=== PATIENT | female | born 1955 | race Caucasian/White ===

== ENCOUNTER 2023-03-21 08:06 | Outpatient (CLI) | payer MEDICARE, BC, SELFPAY ==
[2023-03-21] VITALS (8 sets, daily range): BP systolic 106–121; BP diastolic 55–72; PULSE 92–98; RESP 16–18; TEMP 36.8–37.4; O2SAT 93–97
--- NOTE | 2023-03-21 14:53 | PC.NURSE ---
Pt is refereed here via outpatient to receive PRBC due to low hemoglobin of 6.9. infusion. 1 PRBC was infused, she is currently receiving the 2nd unit of PRBC. No reactions reported or noticed with her VS. PO benedryl and tylenol to be given per Dr Warner's order. Hemoglobin to be repeated after 2nd transfusion is complete.
[2023-03-21] MEDS: ACETAMINOPHEN 325 MG TABLET 650 MG PO (18:21)
[2023-03-21] MEDS: diphenhydrAMINE 25 MG CAPSULE 50 MG PO (18:23)
[2023-03-21 18:27] LABS: Hemoglobin* 8.1 gm/dL (12.0-16.0)
--- NOTE | 2023-03-21 18:49 | PC.NURSE ---
Second unit of PRBC infused without difficulty. VS have remained WNL, LS COA. Temps mildly elevated, as high as 99.4 but pt has denied chills. IV dc'd and pt discharged to home in the care of her via wheelchair at 1830. Pt signed transfusion discharge instructions and verbalized understanding.
== END 2023-03-21 18:56 | disposition home or self-care (01) ==
LOC: MS OUT 08:07 → MEDSURG 04-04 15:42
PROVIDERS: PCP Family Medicine; Visit Provider Family Medicine
DX: D64.9 Anemia, unspecified (principal)
CPT/HCPCS: 36415; 36430; 85018; 86850; 86900; 86901; 86922; A4221; A9270; P9016

== ENCOUNTER 2023-05-15 08:05 | Outpatient (CLI) | payer MEDICARE, BC, SELFPAY ==
--- NOTE | 2023-05-15 08:15 | CRLHL7_ITS ---
For Patients: As a result of the Century Cures Act, medical imaging exams and procedure reports are released immediately into your electronic medical record. You may view this report before your referring provider. If you have questions, please contact your health care provider. INDICATION: Sarcoma, liver lesions COMPARISON: none TECHNIQUE: Real time deluca scale imaging and color Doppler analysis was performed of the right upper quadrant. FINDINGS: There is a solid heterogeneously hypoechoic/isoechoic mass within the liver measuring 5.8 x 4.3 x 4.4 cm. An additional heterogeneous solid hypoechoic/hyperechoic mass is present within the right hepatic lobe measuring 7.3 x 5.5 x 6.4 cm. The liver is enlarged measuring 21.5 cm. A small hypoechoic mass arises from the left hepatic lobe measuring 2.1 x 1.2 x 2.2 cm. The liver parenchyma is diffusely coarsened. No ascites. The pancreas is not well visualized due to overlying bowel gas. The proximal aorta is normal measuring 1.8 cm. The grayscale images of the IVC appear normal. Layering material within the gallbladder lumen noted. The common bile duct measures 3.7 millimeters. Gallbladder wall measures 1.5 millimeters. [place] hyperechoic clot is present within the main portal vein with partial occlusion on Doppler waveform analysis. The right kidney appears normal without hydronephrosis and measures 11.6 cm. IMPRESSION: Three intrahepatic masses measuring up to 7.3 cm. No ascites. 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 Layering sludge in the gallbladder. No biliary obstruction. Dictated by Major Ambriz MD @ 05/15/2023 9:43:29 AM (Electronically Signed)
== END 2023-05-15 08:06 | disposition home or self-care (01) ==
PROVIDERS: PCP Family Medicine; Visit Provider Internal Medicine Hematology & Oncology
DX: C49.9 Malignant neoplasm of connective and soft tissue, unspecified (principal); K76.9 Liver disease, unspecified; R16.0 Hepatomegaly, not elsewhere classified; I81 Portal vein thrombosis
CPT/HCPCS: 76705

== ENCOUNTER 2023-07-09 09:31 | Outpatient (CLI) | payer MEDICARE, BC, SELFPAY ==
--- NOTE | 2023-07-09 10:00 | CRLHL7_ITS ---
For Patients: As a result of the Century Cures Act, medical imaging exams and procedure reports are released immediately into your electronic medical record. You may view this report before your referring provider. If you have questions, please contact your health care provider. Indication: Malignant neoplasm of connective and soft tissue Technique: CT Chest/Abd/Pelvis W/ISOVUE 370 [id number] Please note that all CT scans at this facility use dose modulation, iterative reconstruction, and/or weight-based dosing when appropriate to reduce radiation dose to as low as reasonably achievable. Comparison: 05/20/2023 Findings: In the chest, the visualized thyroid is normal. Atherosclerotic changes. Decreased trace pericardial effusion. No enlarged lymph nodes. No fracture. Stable tiny nodule within the left lower lobe. Chronic right-sided rib fracture deformities. In the abdomen, multiple intrahepatic masses are present, the largest is located within the inferior right hepatic lobe measuring up to 11.8 cm. This mass is more conspicuous compared to the prior study. Additional increased conspicuity of mass in the posterior segment right hepatic lobe measuring 3.6 cm. Other smaller lesions are present elsewhere with within the upper liver measuring 1.9 cm and 1.5 cm. Small cysts left kidney. Right kidney unremarkable. No hydronephrosis. Atherosclerotic changes. Numerous subcentimeter upper abdominal retroperitoneal lymph nodes. Postoperative changes to the stomach. The spleen is absent. No pancreatic lesion. Gallbladder normal. Inflammatory changes are present within the left para midline anterior abdomen with persistent extraluminal fluid/air. In the pelvis, bilateral hip replacement hardware noted creating significant artifact. The visualized bladder and deep pelvic soft tissues appear unremarkable without definitive adenopathy. No fracture. Degenerative facet arthropathy. Impression: Increased size, number and conspicuity of intrahepatic metastatic lesions consistent with progression of disease. Chronic inflammatory changes are present within the left anterior paramidline peritoneal cavity with chronic extraluminal fluid/gas. Right portal venous clot appears similar. No suspicious findings in the chest. Please note that all CT scans at this facility use dose modulation, iterative reconstruction, and/or weight-based dosing when appropriate to reduce radiation dose to as low as reasonably achievable. Dictated by Major Ambriz MD @ 07/10/2023 10:20:14 AM (Electronically Signed)
== END 2023-07-09 09:32 | disposition home or self-care (01) ==
LOC: CT 09:31
PROVIDERS: PCP Family Medicine; Visit Provider Internal Medicine Hematology & Oncology
DX: C49.9 Malignant neoplasm of connective and soft tissue, unspecified (principal)
CPT/HCPCS: 71260; 74177; Q9967

== ENCOUNTER 2023-07-10 10:32 | Emergency (ER) | payer MEDICARE, BC, SELFPAY ==
[2023-07-10] VITALS (32 sets, daily range): BP systolic 96–123; BP diastolic 43–82; PULSE 88–108; RESP 16–30; TEMP 36.9–38.2; O2SAT 90–100; BMI 28.7
--- NOTE | 2023-07-10 10:55 | ED.GENADULT ---
HPI - General Adult General Chief complaint: Abdominal Pain <Christie Miller MD - Last Filed: 07/12/23 10:53> Stated complaint: poss fever <Christie Miller MD - Last Filed: 07/12/23 10:53> Time Seen by Provider: 07/10/23 10:46 <Christie Miller MD - Last Filed: 07/12/23 10:53> Source: patient <Christie Miller MD - Last Filed: 07/12/23 10:53> Mode of arrival: ambulatory <Christie Miller MD - Last Filed: 07/12/23 10:53> Limitations: no limitations <Christie Miller MD - Last Filed: 07/12/23 10:53> History of Present Illness HPI narrative: 68-year-old female presenting with abdominal pain. Pain started 2 days ago. Pain is located in left lower quadrant does not radiate. Nothing seems to make it better or worse. Patient has not had a bowel movement in 3 days which is unusual for her. She denies any urinary symptoms such as increased frequency, urgency or dysuria. She denies any nausea or vomiting. Appetite has been normal. She states that she had temperature of 100.1? this morning. She denies chills. 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 She is getting palliative treatment. She also had a postoperative course complicated by abscess and infection. She is concerned that she may have another infection. Patient was seen yesterday for a chest, abdomen and pelvis CT scan as a follow-up. Results of the scan consistent with lesions which are now more conspicuous when compared to previous scans, liver metastasis. She also does have an area chronic inflammation of the left anterior paramidline peritoneal cavity. There was no evidence of acute infection or abscess formation on the scan yesterday. She does feel that her pain is slightly better today. <Christie Miller MD - Last Filed: 07/12/23 10:53> Related Data Home medications: Home Medications Medication Instructions Recorded Confirmed alendronate 70 mg tablet 70 mg PO .sunday03/27/23 07/10/23 omega 3-ifj-gmo-fish oil 1,000 mg 1 cap PO DAILY 03/27/23 07/10/23 (120 mg-180 mg) capsule (Fish Oil) potassium 99 mg tablet mg 03/27/23 06/06/23 sennosides 8.6 mg-docusate sodium 1 tab-cap PO DAILY 03/27/23 07/10/23 50 mg tablet (Senna with Docusate Sodium) cholecalciferol (vitamin D3) 25 5,000 unit PO DAILY 06/06/23 07/10/23 mcg (1,000 unit) capsule losartan 100 1 tab PO DAILY PRN 06/06/23 07/10/23 mg-hydrochlorothiazide 25 mg tablet naproxen 250 mg tablet 250 mg PO DAILY PRN 06/06/23 07/10/23 simvastatin 40 mg tablet 80 mg PO QPM 06/06/23 07/10/23 docusate sodium 100 mg capsule 200 mg PO DAILY 06/22/23 07/10/23 (Colace) ondansetron HCl 8 mg tablet 8 mg PO Q8-12H PRN 06/22/23 06/22/23 polyethylene glycol 3350 17 17 g PO DAILY 06/22/23 07/10/23 gram/dose oral powder (Miralax) <Christie Miller MD - Last Filed: 07/12/23 10:53> Allergies/adverse reactions: Allergies Allergy/AdvReac Type Severity Reaction Status Date / Time No Known Drug Allergies Allergy Verified 07/10/23 13:54 <Christie Miller MD - Last Filed: 07/12/23 10:53> Review of Systems Status of ROS: Reports: 10 or more systems reviewed and unremarkable except as noted in History and below <Christie Miller MD - Last Filed: 07/12/23 10:53> [facility] Social History: Social History Smoking Status: Current every day smoker What tobacco products do you use: cigarettes Smoking packs per day: 0.5 Smoking cigarettes per day: 10.0 How often do you have a drink containing alcohol: never How often do you have six or more drinks on one occasion: Never AUDIT-C Alcohol total score: 0 Non-prescribed substance use: denies use service: No <Christie Miller MD - Last Filed: 07/12/23 10:53> Exam Narrative: Exam Narrative: Well-nourished well-developed patient in no acute distress. Alert and oriented. Answers questions appropriately. Mood and affect are appropriate. Thoughts are goal oriented and rational. No tangential or magical thinking noted. Patient speaks in full sentences without needing to catch her breath. Patient does not appear ill or toxic. She is a bit tachycardic. HEENT: Normocephalic atraumatic. Pupils are equally round reactive to light. Extraocular muscles are intact. Conjunctivae are moist without any icterus noted. Moist mucous membranes. Posterior pharynx is normal. Neck is soft without any lymphadenopathy or thyromegaly. No masses are appreciated. Cardiovascular: Heart is regular rate and rhythm S1 and S2 are present without any murmurs. Lungs: Clear to auscultation bilaterally no wheezes rhonchi or rales are appreciated. Patient takes deep breaths without any discomfort. Abdomen: Soft, nontender and nondistended. She does have hypoactive bowel sounds. Anterior abdominal vertical scar healed appropriately. She has some firm masses over the left lower quadrant. Extremities: Bilateral lower extremities are without edema. Normal DP and PT pulses. Skin: Well perfused without any obvious rashes. <Christie Miller MD - Last Filed: 07/12/23 10:53> Const: Vital Signs, click to edit/add: Vital Signs - 24 hr 07/10/23 10:39 07/10/23 12:15 07/10/23 13:49 Temperature 98.5 F 100.7 F H 99.1 F Pulse Rate Pulse Rate [Right Pulse Oximeter] 108 H 101 H Respiratory Rate 18 30 H Blood Pressure Blood Pressure [Ri ght Forearm] 105/80 103/82 Pulse Oximetry 99 98 Oxygen Delivery Me thod Room Air Room Air 07/10/23 14:04 07/10/23 14:09 07/10/23 14:15 Temperature 100.4 F H Pulse Rate Pulse Rate [Right Pulse Oximeter] 95 Respiratory Rate 16 Blood Pressure Blood Pressure [Ri ght Forearm] 97/63 98/48 L Pulse Oximetry 92 94 Oxygen Delivery Me thod Room Air 07/10/23 14:21 07/10/23 14:29 07/10/23 14:30 Temperature 99.3 F Pulse Rate 94 92 Pulse Rate [Right Pulse Oximeter] Respiratory Rate Blood Pressure Blood Pressure [Ri ght Forearm] Pulse Oximetry 93 92 Oxygen Delivery Me thod 07/10/23 14:31 07/10/23 14:45 07/10/23 15:03 Temperature Pulse Rate 91 91 91 Pulse Rate [Right Pulse Oximeter] Respiratory Rate Blood Pressure 105/62 Blood Pressure [Ri ght Forearm] Pulse Oximetry 93 94 98 Oxygen Delivery Me thod 07/10/23 15:04 07/10/23 15:15 07/10/23 15:30 Temperature Pulse Rate 92 90 90 Pulse Rate [Right Pulse Oximeter] Respiratory Rate Blood Pressure 109/66 Blood Pressure [Ri ght Forearm] Pulse Oximetry 98 95 95 Oxygen Delivery Me thod 07/10/23 15:32 07/10/23 15:33 07/10/23 15:45 Temperature Pulse Rate 89 89 91 Pulse Rate [Right Pulse Oximeter] Respiratory Rate Blood Pressure 99/58 L Blood Pressure [Ri ght Forearm] Pulse Oximetry 94 94 92 Oxygen Delivery Me thod 07/10/23 16:00 07/10/23 16:01 07/10/23 16:02 Temperature Pulse Rate 90 90 90 Pulse Rate [Right Pulse Oximeter] Respiratory Rate Blood Pressure 96/50 L Blood Pressure [Ri ght Forearm] Pulse Oximetry 94 93 91 Oxygen Delivery Me thod 07/10/23 16:15 07/10/23 16:31 07/10/23 17:01 Temperature Pulse Rate 91 95 Pulse Rate [Right Pulse Oximeter] Respiratory Rate Blood Pressure 106/59 L Blood Pressure [Ri ght Forearm] Pulse Oximetry 94 97 Oxygen Delivery Me thod 07/10/23 17:02 Temperature Pulse Rate 92 Pulse Rate [Right Pulse Oximeter] Respiratory Rate Blood Pressure 123/61 Blood Pressure [Ri ght Forearm] Pulse Oximetry 98 Oxygen Delivery Me thod <Christie Miller MD - Last Filed: 07/12/23 10:53> Vital Signs, click to edit/add: Vital Signs - 24 hr 07/10/23 10:39 07/10/23 12:15 07/10/23 13:49 Temperature 98.5 F 100.7 F H 99.1 F Pulse Rate Pulse Rate [Right Pulse Oximeter] 108 H 101 H Respiratory Rate 18 30 H Blood Pressure Blood Pressure [Ri ght Forearm] 105/80 103/82 Pulse Oximetry 99 98 Oxygen Delivery Me thod Room Air Room Air 07/10/23 14:04 07/10/23 14:09 07/10/23 14:15 Temperature 100.4 F H Pulse Rate Pulse Rate [Right Pulse Oximeter] 95 Respiratory Rate 16 Blood Pressure Blood Pressure [Ri ght Forearm] 97/63 98/48 L Pulse Oximetry 92 94 Oxygen Delivery Me thod Room Air 07/10/23 14:21 07/10/23 14:29 07/10/23 14:30 Temperature 99.3 F Pulse Rate 94 92 Pulse Rate [Right Pulse Oximeter] Respiratory Rate Blood Pressure Blood Pressure [Ri ght Forearm] Pulse Oximetry 93 92 Oxygen Delivery Me thod 07/10/23 14:31 07/10/23 14:45 07/10/23 15:03 Temperature Pulse Rate 91 91 91 Pulse Rate [Right Pulse Oximeter] Respiratory Rate Blood Pressure 105/62 Blood Pressure [Ri ght Forearm] Pulse Oximetry 93 94 98 Oxygen Delivery Me thod 07/10/23 15:04 07/10/23 15:15 07/10/23 15:30 Temperature Pulse Rate 92 90 90 Pulse Rate [Right Pulse Oximeter] Respiratory Rate Blood Pressure 109/66 Blood Pressure [Ri ght Forearm] Pulse Oximetry 98 95 95 Oxygen Delivery Me thod 07/10/23 15:32 07/10/23 15:33 07/10/23 15:45 Temperature Pulse Rate 89 89 91 Pulse Rate [Right Pulse Oximeter] Respiratory Rate Blood Pressure 99/58 L Blood Pressure [Ri ght Forearm] Pulse Oximetry 94 94 92 Oxygen Delivery Me thod 07/10/23 16:00 07/10/23 16:01 07/10/23 16:02 Temperature Pulse Rate 90 90 90 Pulse Rate [Right Pulse Oximeter] Respiratory Rate Blood Pressure 96/50 L Blood Pressure [Ri ght Forearm] Pulse Oximetry 94 93 91 Oxygen Delivery Me thod 07/10/23 16:15 07/10/23 16:31 07/10/23 17:01 Temperature Pulse Rate 91 95 Pulse Rate [Right Pulse Oximeter] Respiratory Rate Blood Pressure 106/59 L Blood Pressure [Ri ght Forearm] Pulse Oximetry 94 97 Oxygen Delivery Me thod 07/10/23 17:02 Temperature Pulse Rate 92 Pulse Rate [Right Pulse Oximeter] Respiratory Rate Blood Pressure 123/61 Blood Pressure [Ri ght Forearm] Pulse Oximetry 98 Oxygen Delivery Me thod <Kwesi Gonzalez MD - Last Filed: 07/10/23 17:30> Course Course ED Course: White blood cell count is elevated at above 19,000, CRP above 14. Mild hyponatremia, normal lactate. Patient did receive 500 mL of normal saline, her pulse did not really come down much and her temperature did go up to 100.7. At this time blood cultures were drawn, prolactin was also drawn. The discussed repeating the imaging from yesterday mode: Chest/abdomen/pelvis CT was repeated. Urinalysis was nonspecific. <Christie Miller MD - Last Filed: 07/12/23 10:53> Vital Signs Vital signs: Initial Vital Signs Temperature 98.5 F 07/10/23 10:39 Temperature Source Temporal Artery Scan 07/10/23 10:39 Pulse Rate 108 H 07/10/23 10:39 Pulse Rhythm Regular 07/10/23 10:39 Respiratory Rate 18 07/10/23 10:39 Blood Pressure 105/80 07/10/23 10:39 Blood Pressure Mean 88 07/10/23 10:39 Blood Pressure Position Sitting 07/10/23 10:39 Pulse Oximetry 99 07/10/23 10:39 Oxygen Delivery Method Room Air 07/10/23 10:39 Vital Signs Temperature 98.5 F 07/10/23 10:39 Pulse Rate 108 H 07/10/23 10:39 Respiratory Rate 18 07/10/23 10:39 Blood Pressure 105/80 07/10/23 10:39 Pulse Oximetry 99 07/10/23 10:39 Oxygen Delivery Method Room Air 07/10/23 10:39 Temperature 99.3 F 07/10/23 14:29 Pulse Rate 96 07/10/23 18:01 Respiratory Rate 20 07/10/23 17:32 Blood Pressure 110/52 L 07/10/23 18:01 Pulse Oximetry 94 07/10/23 18:01 Oxygen Delivery Method Room Air 07/10/23 14:04 <Christie Miller MD - Last Filed: 07/12/23 10:53> Initial Vital Signs Temperature 98.5 F 07/10/23 10:39 Temperature Source Temporal Artery Scan 07/10/23 10:39 Pulse Rate 108 H 07/10/23 10:39 Pulse Rhythm Regular 07/10/23 10:39 Respiratory Rate 18 07/10/23 10:39 Blood Pressure 105/80 07/10/23 10:39 Blood Pressure Mean 88 07/10/23 10:39 Blood Pressure Position Sitting 07/10/23 10:39 Pulse Oximetry 99 07/10/23 10:39 Oxygen Delivery Method Room Air 07/10/23 10:39 Vital Signs Temperature 98.5 F 07/10/23 10:39 Pulse Rate 108 H 07/10/23 10:39 Respiratory Rate 18 07/10/23 10:39 Blood Pressure 105/80 07/10/23 10:39 Pulse Oximetry 99 07/10/23 10:39 Oxygen Delivery Method Room Air 07/10/23 10:39 Temperature 99.3 F 07/10/23 14:29 Pulse Rate 96 07/10/23 18:01 Respiratory Rate 20 07/10/23 17:32 Blood Pressure 110/52 L 07/10/23 18:01 Pulse Oximetry 94 07/10/23 18:01 Oxygen Delivery Method Room Air 07/10/23 14:04 <Kwesi Gonzalez MD - Last Filed: 07/10/23 17:30> Medications Administered Medications: Discontinued Medications Generic Name Dose Route Start Last Admin Trade Name Tomq PRN Reason Stop Dose Admin Acetaminophen 1,000 mg 07/10/23 12:22 07/10/23 12:27 Acetaminophen 500 Mg Tablet PO 07/10/23 12:23 1,000 mg ONCE ONE Administration Sodium Chloride 500 mls @ 500 mls/hr 07/10/23 11:01 07/10/23 12:25 0.9 % Sodium Chloride 500 Ml IV 07/10/23 12:00 Infused .Q1H ONE Infusion Sodium Chloride 500 mls @ 500 mls/hr 07/10/23 14:06 07/10/23 15:39 0.9 % Sodium Chloride 500 Ml IV 07/10/23 15:05 Infused .Q1H ONE Infusion Sodium Chloride 1,000 mls @ 125 mls/hr 07/10/23 15:48 07/10/23 16:01 0.9 % Sodium Chloride 1000 Ml IV 125 mls/hr .Q8H PRUDENCE Administration Piperacillin Sod/Tazobactam 100 mls @ 200 mls/hr 07/10/23 16:00 07/10/23 17:04 Sod 3.375 gm/ Sodium Chloride IVPB Infused Q6H PRUDENCE Infusion <Christie Miller MD - Last Filed: 07/12/23 10:53> Discontinued Medications Generic Name Dose Route Start Last Admin Trade Name Arjun PRN Reason Stop Dose Admin Acetaminophen 1,000 mg 07/10/23 12:22 07/10/23 12:27 Acetaminophen 500 Mg Tablet PO 07/10/23 12:23 1,000 mg ONCE ONE Administration Sodium Chloride 500 mls @ 500 mls/hr 07/10/23 11:01 07/10/23 12:25 0.9 % Sodium Chloride 500 Ml IV 07/10/23 12:00 Infused .Q1H ONE Infusion Sodium Chloride 500 mls @ 500 mls/hr 07/10/23 14:06 07/10/23 15:39 0.9 % Sodium Chloride 500 Ml IV 07/10/23 15:05 Infused .Q1H ONE Infusion Sodium Chloride 1,000 mls @ 125 mls/hr 07/10/23 15:48 07/10/23 16:01 0.9 % Sodium Chloride 1000 Ml IV 125 mls/hr .Q8H PRUDENCE Administration Piperacillin Sod/Tazobactam 100 mls @ 200 mls/hr 07/10/23 16:00 07/10/23 17:04 Sod 3.375 gm/ Sodium Chloride IVPB Infused Q6H PRUDENCE Infusion <Kwesi Gnozalez MD - Last Filed: 07/10/23 17:30> Medical Decision Making MDM Narrative Medical decision making narrative: Care for this patient was transferred to [place] at the end of Dr. Miller's shift. This patient is awaiting transfer to a tertiary facility given the complications of her gastric cancer and subsequent surgery with infection and now evidence of free air and possible bowel perforation. Attempt was made to transfer to the [facility] where she had her surgery a few months ago but there were no beds available there. I also spoke with surgeons at [facility] and [facility] and these were not options also. The patient is accepted at the [facility] and will be transferred to the emergency department there. Dr. Paige is the accepting physician there. <Kwesi Gonzalez MD - Last Filed: 07/10/23 17:30> Lab Data Labs: Lab Results 07/10/23 07/10/23 07/10/23 Range/Units 10:47 11:10 12:30 WBC 19.48 H (4.50-11.00) K/uL RBC 3.97 L (4.00-5.20) m/uL Hgb 11.4 L (12.0-16.0) gm/dL Hct 35.3 (33.0-51.0) % MCV 89 (80-100) fL MCH 29 (26-34) pg MCHC 32 (32-36) gm/dL RDW Coeff of Danielle 18.5 H (11.5-15.5) % Plt Count 426 (140-440) K/uL Neut % (Auto) 76.6 H (42.0-72.0) % Lymph % (Auto) 7.8 L (20-44) % [place] % (Auto) 14.6 H (0.0-11.0) % Eos % (Auto) 0.0 (0.0-7.0) % Baso % (Auto) 0.1 (0.0-3.0) % Neut # (Auto) 14.90 H (1.7-7.0) K/uL Lymph # (Auto) 1.50 (0.90-2.90) K/uL [place] # (Auto) 2.80 H (0.00-0.90) K/UL Eos # (Auto) 0.00 (0.00-0.50) K/uL Baso # (Auto) 0.00 (0.00-0.30) K/uL Abs Immat Gran (auto) 0.20 (0.00-0.30) K/uL Imm/Tot Granulo (auto) 0.9 % Diff Slide Review Acceptable Review (Acceptable) Sodium 131 L (135-149) mmol/L Potassium 3.9 (3.6-5.1) mmol/L Chloride 98 (96-114) mmol/L Carbon Dioxide 25 (20-32) mmol/L Anion Gap 8 (7-15) mEq/L BUN 16 (7-30) mg/dL Creatinine 0.6 (0.5-1.5) mg/dL Estimated Creat Clear 49.00 Estimated GFR 97 ml/min Glucose 161 H (60-115) mg/dL Lactate 1.7 (0.5-1.9) mmol/L Calcium 8.6 (8.4-10.6) mg/dL Total Bilirubin 0.8 (0.1-1.5) mg/dL Direct Bilirubin 0.0 (0.0-0.5) mg/dL AST 27 (12-35) U/L ALT 23 (4-35) U/L Alkaline Phosphatase 84 (40-150) U/L C-Reactive Protein 14.3 H (0.5-1.0) mg/dL Total Protein 6.9 (6.0-8.3) g/dL Albumin 3.6 (3.3-5.0) g/dL Lipase 12 L (23-300) U/L Procalcitonin 0.35 (<0.50) ng/mL Urine Color [place] A (Yellow) Urine Appearance Slightly Cloudy A (Clear) Urine pH 5.5 (5.0-8.5) Ur Specific [place] >= 1.030 (1.000-1.030) Urine Protein 2+ A (Negative) Urine Glucose (UA) Negative (Negative) Urine Ketones Negative (Negative) Urine Blood Negative (Negative) Urine Nitrite Positive A (Negative) Urine Bilirubin 1+ A (Negative) Urine Urobilinogen 0.2 (0.2-1.0) Ur Leukocyte Esterase Negative (Negative) Urine RBC 0-2 (0-2) Urine WBC 0-2 (0-5) Ur Squamous Epith Cells Few (None-Few) Urine Bacteria Few A (None) SARS-CoV-2 (PCR) Negative SARS-CoV-2 (Negative) Influenza Type A (PCR) Negative PCR FLU A (Negative) Influenza Type B (PCR) Negative PCR FLU B (Negative) RSV (PCR) Negative PCR RSV (Negative) <Christie Miller MD - Last Filed: 07/12/23 10:53> Lab Results 07/10/23 07/10/23 07/10/23 Range/Units 10:47 11:10 12:30 WBC 19.48 H (4.50-11.00) K/uL RBC 3.97 L (4.00-5.20) m/uL Hgb 11.4 L (12.0-16.0) gm/dL Hct 35.3 (33.0-51.0) % MCV 89 (80-100) fL MCH 29 (26-34) pg MCHC 32 (32-36) gm/dL RDW Coeff of Danielle 18.5 H (11.5-15.5) % Plt Count 426 (140-440) K/uL Neut % (Auto) 76.6 H (42.0-72.0) % Lymph % (Auto) 7.8 L (20-44) % [place] % (Auto) 14.6 H (0.0-11.0) % Eos % (Auto) 0.0 (0.0-7.0) % Baso % (Auto) 0.1 (0.0-3.0) % Neut # (Auto) 14.90 H (1.7-7.0) K/uL Lymph # (Auto) 1.50 (0.90-2.90) K/uL [place] # (Auto) 2.80 H (0.00-0.90) K/UL Eos # (Auto) 0.00 (0.00-0.50) K/uL Baso # (Auto) 0.00 (0.00-0.30) K/uL Abs Immat Gran (auto) 0.20 (0.00-0.30) K/uL Imm/Tot Granulo (auto) 0.9 % Diff Slide Review Acceptable Review (Acceptable) Sodium 131 L (135-149) mmol/L Potassium 3.9 (3.6-5.1) mmol/L Chloride 98 (96-114) mmol/L Carbon Dioxide 25 (20-32) mmol/L Anion Gap 8 (7-15) mEq/L BUN 16 (7-30) mg/dL Creatinine 0.6 (0.5-1.5) mg/dL Estimated Creat Clear 49.00 Estimated GFR 97 ml/min Glucose 161 H (60-115) mg/dL Lactate 1.7 (0.5-1.9) mmol/L Calcium 8.6 (8.4-10.6) mg/dL Total Bilirubin 0.8 (0.1-1.5) mg/dL Direct Bilirubin 0.0 (0.0-0.5) mg/dL AST 27 (12-35) U/L ALT 23 (4-35) U/L Alkaline Phosphatase 84 (40-150) U/L C-Reactive Protein 14.3 H (0.5-1.0) mg/dL Total Protein 6.9 (6.0-8.3) g/dL Albumin 3.6 (3.3-5.0) g/dL Lipase 12 L (23-300) U/L Procalcitonin 0.35 (<0.50) ng/mL Urine Color [place] A (Yellow) Urine Appearance Slightly Cloudy A (Clear) Urine pH 5.5 (5.0-8.5) Ur Specific [place] >= 1.030 (1.000-1.030) Urine Protein 2+ A (Negative) Urine Glucose (UA) Negative (Negative) Urine Ketones Negative (Negative) Urine Blood Negative (Negative) Urine Nitrite Positive A (Negative) Urine Bilirubin 1+ A (Negative) Urine Urobilinogen 0.2 (0.2-1.0) Ur Leukocyte Esterase Negative (Negative) Urine RBC 0-2 (0-2) Urine WBC 0-2 (0-5) Ur Squamous Epith Cells Few (None-Few) Urine Bacteria Few A (None) SARS-CoV-2 (PCR) Negative SARS-CoV-2 (Negative) Influenza Type A (PCR) Negative PCR FLU A (Negative) Influenza Type B (PCR) Negative PCR FLU B (Negative) RSV (PCR) Negative PCR RSV (Negative) <Kwesi Gonzalez MD - Last Filed: 07/10/23 17:30> Imaging Data CT Chest/Ab/Pelvis: Attestation: I have reviewed the pertinent imaging results. <Christie Miller MD - Last Filed: 07/12/23 10:53> My impression: Scan from 07/09/2023 <Christie Miller MD - Last Filed: 07/12/23 10:53> Radiologist's impression: Final Report: Indication: Malignant neoplasm of connective and soft tissue Technique: CT Chest/Abd/Pelvis W/ISOVUE 370 [id number] Please note that all CT scans at this facility use dose modulation, iterative reconstruction, and/or weight-based dosing when appropriate to reduce radiation dose to as low as reasonably achievable. Comparison: 05/20/2023 Findings: In the chest, the visualized thyroid is normal. Atherosclerotic changes. Decreased trace pericardial effusion. No enlarged lymph nodes. No fracture. Stable tiny nodule within the left lower lobe. Chronic right-sided rib fracture deformities. In the abdomen, multiple intrahepatic masses are present, the largest is located within the inferior right hepatic lobe measuring up to 11.8 cm. This mass is more conspicuous compared to the prior study. Additional increased conspicuity of mass in the posterior segment right hepatic lobe measuring 3.6 cm. Other smaller lesions are present elsewhere with within the upper liver measuring 1.9 cm and 1.5 cm. Small cysts left kidney. Right kidney unremarkable. No hydronephrosis. Atherosclerotic changes. Numerous subcentimeter upper abdominal retroperitoneal lymph nodes. Postoperative changes to the stomach. The spleen is absent. No pancreatic lesion. Gallbladder normal. Inflammatory changes are present within the left para midline anterior abdomen with persistent extraluminal fluid/air. In the pelvis, bilateral hip replacement hardware noted creating significant artifact. The visualized bladder and deep pelvic soft tissues appear unremarkable without definitive adenopathy. No fracture. Degenerative facet arthropathy. Impression: Increased size, number and conspicuity of intrahepatic metastatic lesions consistent with progression of disease. Chronic inflammatory changes are present within the left anterior paramidline peritoneal cavity with chronic extraluminal fluid/gas. Right portal venous clot appears similar. No suspicious findings in the chest. <Christie Miller MD - Last Filed: 07/12/23 10:53> CT scan - abdomen: Attestation: I have reviewed the pertinent imaging results. <Christie Miller MD - Last Filed: 07/12/23 10:53> Radiologist's impression: INDICATION: PAIN LLQ. CKING INFECTION SEEN ON CT DONE 07/09/23 TECHNIQUE: CT abdomen and pelvis acquired with 95 cc Isovue 370 IV contrast. COMPARISON: June 2023. FINDINGS: Lower chest: Refer to chest CT of same day. ABDOMEN: Liver: Stable hepatic metastases. Gallbladder and biliary: Vicarious excretion of contrast into the gallbladder. Normal caliber bile ducts. Spleen: Splenectomy. Pancreas: Normal enhancement without peripancreatic inflammatory changes or ductal dilatation. Adrenal glands: Normal adrenal glands. Kidneys and ureters: Normal enhancement. No radio-opaque calculi. No hydroureteronephrosis. Subcentimeter hypodensities are too small to characterize however statistically represent cysts. GI tract: Stable changes of partial gastric resection. Normal caliber small and large bowel loops. Normal appendix. Increased amount extraluminal gas abutting a region of left lower quadrant small bowel loops. Associated adjacent mesenteric edema and bowel wall thickening. Likely tract extending toward 1 of these loops of small bowel, axial images 76 through 106. Adjacent surrounding free fluid. Vascular structures: Normal caliber aorta with atherosclerotic calcifications. Stable appearance of right portal venous thrombus. Lymph nodes: Stable prominent lymph nodes. Peritoneum: Small amount of free fluid within the dependent portion of the pelvis. PELVIS: Genitourinary system: Urinary bladder is decompressed. Streak artifact obscures the pelvis. SKELETAL STRUCTURES AND SOFT TISSUES: Bilateral hip arthroplasties. Stable anterior midline subcutaneous cystic nodule abutting the skin surface, statistically a sebaceous cyst. Old right-sided rib fractures. Subcentimeter sclerotic focus within the left iliac bone. IMPRESSION: 1. Increased amount extraluminal gas abutting a region of left lower quadrant small bowel loops. Associated adjacent mesenteric edema and bowel wall thickening. Likely tract extending toward 1 of these loops of small bowel. Adjacent surrounding free fluid. Constellation of findings raise concern for small bowel leak. Recommend surgical consultation. 2. Stable hepatic metastases. <Christie Miller MD - Last Filed: 07/12/23 10:53> CT scan - chest: Attestation: I have reviewed the pertinent imaging results. <Christie Miller MD - Last Filed: 07/12/23 10:53> Radiologist's impression: TECHNIQUE: CT chest PE was acquired with 100 cc Omnipaque 350 IV contrast. COMPARISON: None. FINDINGS: Heart and vasculature: No evidence of pulmonary embolism. Normal caliber of the thoracic aorta and pulmonary trunk. Severe multivessel atherosclerotic coronary calcifications. Lungs and pleura: No suspicious nodules or infiltrates. No pleural effusions, pleural thickening, or pneumothorax. Lymph nodes/mediastinum: No mediastinal, hilar, or axillary adenopathy. Chest wall: Unchanged anterior midline circumscribed nonspecific low-attenuation nodule at the dermal subcutaneous fat interface below the xiphoid process consistent with an epidermal inclusion cyst, for example. Upper abdomen: Multiple hepatic lesions. Left upper quadrant nodular peritoneal thickening suspicious for peritoneal carcinomatosis. Postsurgical changes related to the stomach and proximal small bowel. Please refer to yesterday`s CT of the abdomen for a complete description of these findings. Bones: Chronic fracture deformities of the right 5th and 6th ribs. IMPRESSION: No evidence of pulmonary embolism or other acute cardiopulmonary process. <Christie Miller MD - Last Filed: 07/12/23 10:53> Discharge Plan Discharge Clinical Impression: Bowel perforation <Christie Miller MD - Last Filed: 07/12/23 10:53> Patient Disposition: [facility] <Christie Miller MD - Last Filed: 07/12/23 10:53> Condition: Unchanged <Christie Miller MD - Last Filed: 07/12/23 10:53> Prescriptions: No Action alendronate 70 mg tablet 70 mg PO .sunday potassium 99 mg tablet sennosides-docusate sodium [Senna with Docusate Sodium] 8.6-50 mg tablet 1 tab-cap PO DAILY omega 1-oai-arw-fish oil [Fish Oil] 1,000 mg (120 mg-180 mg) capsule 1 cap PO DAILY simvastatin 40 mg tablet 80 mg PO QPM naproxen 250 mg tablet 250 mg PO DAILY PRN losartan-hydrochlorothiazide 100-25 mg tablet 1 tab PO DAILY PRN cholecalciferol (vitamin D3) 25 mcg (1,000 unit) capsule 5,000 unit PO DAILY docusate sodium [Colace] 100 mg capsule 200 mg PO DAILY polyethylene glycol 3350 [Miralax] 17 gram/dose powder 17 g PO DAILY ondansetron HCl 8 mg tablet 8 mg PO Q8-12H PRN <Christie Miller MD - Last Filed: 07/12/23 10:53> Stand Alone Forms: [facility] <Christie Miller MD - Last Filed: 07/12/23 10:53>
[2023-07-10 11:23] LABS: Lactate* 1.7 mmol/L (0.5-1.9)
[2023-07-10 11:24] LABS: Basophils Percent Auto 0.1 % (0.0-3.0); Hematocrit 35.3 % (33.0-51.0); Hemoglobin* 11.4 gm/dL (12.0-16.0); Immature Granulocytes Pct Auto 0.9 %; Lymphocytes Percent Auto 7.8 % (20-44); Mean Corpuscular HGB Conc 32 gm/dL (32-36); Mean Corpuscular Hemoglobin 29 pg (26-34); Mean Corpuscular Volume 89 fL (80-100); Monocytes Percent Auto 14.6 % (0.0-11.0); Neutrophils Percent Auto 76.6 % (42.0-72.0); Platelet Count* 426 K/uL (140-440); RDW Coefficient of Variation % 18.5 % (11.5-15.5); Red Blood Count 3.97 m/uL (4.00-5.20); White Blood Count* 19.48 K/uL (4.50-11.00)
[2023-07-10] MEDS: 0.9 % SODIUM CHLORIDE 500 ML 500 ML IV ×2 (11:26→14:18)
[2023-07-10 11:35] LABS: Slide Review Reflex Yes
[2023-07-10 11:42] LABS: Albumin* 3.6 g/dL (3.3-5.0); Chloride* 98 mmol/L (96-114)
[2023-07-10 11:43] LABS: Potassium* 3.9 mmol/L (3.6-5.1); Sodium* 131 mmol/L (135-149)
[2023-07-10 11:45] LABS: Anion Gap 8 mEq/L (7-15); Aspartate Amino Transferase* 27 U/L (12-35); Bilirubin Total* 0.8 mg/dL (0.1-1.5); Carbon Dioxide* 25 mmol/L (20-32); Creatinine* 0.6 mg/dL (0.5-1.5); Estimated Glomerular Filt Rate 97 ml/min; Total Protein* 6.9 g/dL (6.0-8.3)
[2023-07-10 11:46] LABS: Alanine Aminotransferase* 23 U/L (4-35); Alkaline Phosphatase* 84 U/L (40-150); Blood Urea Nitrogen* 16 mg/dL (7-30); Calcium* 8.6 mg/dL (8.4-10.6); Glucose* 161 mg/dL (60-115); Lipase* 12 U/L (23-300)
[2023-07-10 12:02] LABS: PCR FLU A Negative PCR FLU A (Negative); PCR FLU B Negative PCR FLU B (Negative); PCR RSV Negative PCR RSV (Negative)
[2023-07-10 12:12] LABS: Appearance Urine Slightly Cloudy (Clear); Bilirubin Urine 1+ (Negative); Blood Urine Negative (Negative); Color Urine Orange (Yellow); Glucose Urine Negative (Negative); Ketones Urine Negative (Negative); Leukocyte Esterase Urine Negative (Negative); Nitrite Urine Positive (Negative); Protein Urine 2+ (Negative); Specific Gravity Urine >= 1.030 (1.000-1.030); Urobilinogen Urine 0.2 (0.2-1.0); pH Urine 5.5 (5.0-8.5)
[2023-07-10 12:12] LABS: SARS PCR* Negative SARS-CoV-2 (Negative); Slide Review Acceptable Review (Acceptable)
--- NOTE | 2023-07-10 12:21 | CRLHL7_ITS ---
For Patients: As a result of the Century Cures Act, medical imaging exams and procedure reports are released immediately into your electronic medical record. You may view this report before your referring provider. If you have questions, please contact your health care provider. INDICATION: PAIN LLQ. CKING INFECTION SEEN ON CT DONE 07/09/23 TECHNIQUE: CT abdomen and pelvis acquired with 95 cc Isovue 370 IV contrast. COMPARISON: June 2023. FINDINGS: Lower chest: Refer to chest CT of same day. ABDOMEN: Liver: Stable hepatic metastases. Gallbladder and biliary: Vicarious excretion of contrast into the gallbladder. Normal caliber bile ducts. Spleen: Splenectomy. Pancreas: Normal enhancement without peripancreatic inflammatory changes or ductal dilatation. Adrenal glands: Normal adrenal glands. Kidneys and ureters: Normal enhancement. No radio-opaque calculi. No hydroureteronephrosis. Subcentimeter hypodensities are too small to characterize however statistically represent cysts. GI tract: Stable changes of partial gastric resection. Normal caliber small and large bowel loops. Normal appendix. Increased amount extraluminal gas abutting a region of left lower quadrant small bowel loops. Associated adjacent mesenteric edema and bowel wall thickening. Likely tract extending toward 1 of these loops of small bowel, axial images 76 through 106. Adjacent surrounding free fluid. Vascular structures: Normal caliber aorta with atherosclerotic calcifications. Stable appearance of right portal venous thrombus. Lymph nodes: Stable prominent lymph nodes. Peritoneum: Small amount of free fluid within the dependent portion of the pelvis. PELVIS: Genitourinary system: Urinary bladder is decompressed. Streak artifact obscures the pelvis. SKELETAL STRUCTURES AND SOFT TISSUES: Bilateral hip arthroplasties. Stable anterior midline subcutaneous cystic nodule abutting the skin surface, statistically a sebaceous cyst. Old right-sided rib fractures. Subcentimeter sclerotic focus within the left iliac bone. IMPRESSION: 1. Increased amount extraluminal gas abutting a region of left lower quadrant small bowel loops. Associated adjacent mesenteric edema and bowel wall thickening. Likely tract extending toward 1 of these loops of small bowel. Adjacent surrounding free fluid. Constellation of findings raise concern for small bowel leak. Recommend surgical consultation. 2. Stable hepatic metastases. Please note that all CT scans at this facility use dose modulation, iterative reconstruction, and/or weight-based dosing when appropriate to reduce radiation dose to as low as reasonably achievable. Dictated by Major Dickinson MD @ 07/10/2023 2:45:55 PM (Electronically Signed)
--- NOTE | 2023-07-10 12:21 | CRLHL7_ITS ---
For Patients: As a result of the Century Cures Act, medical imaging exams and procedure reports are released immediately into your electronic medical record. You may view this report before your referring provider. If you have questions, please contact your health care provider. INDICATION: Tachypnea. History of metastatic disease. TECHNIQUE: CT chest PE was acquired with 100 cc Omnipaque 350 IV contrast. COMPARISON: None. FINDINGS: Heart and vasculature: No evidence of pulmonary embolism. Normal caliber of the thoracic aorta and pulmonary trunk. Severe multivessel atherosclerotic coronary calcifications. Lungs and pleura: No suspicious nodules or infiltrates. No pleural effusions, pleural thickening, or pneumothorax. Lymph nodes/mediastinum: No mediastinal, hilar, or axillary adenopathy. Chest wall: Unchanged anterior midline circumscribed nonspecific low-attenuation nodule at the dermal subcutaneous fat interface below the xiphoid process consistent with an epidermal inclusion cyst, for example. Upper abdomen: Multiple hepatic lesions. Left upper quadrant nodular peritoneal thickening suspicious for peritoneal carcinomatosis. Postsurgical changes related to the stomach and proximal small bowel. Please refer to yesterday`s CT of the abdomen for a complete description of these findings. Bones: Chronic fracture deformities of the right 5th and 6th ribs. IMPRESSION: No evidence of pulmonary embolism or other acute cardiopulmonary process. Incidental findings described above. Please note that all CT scans at this facility use dose modulation, iterative reconstruction, and/or weight-based dosing when appropriate to reduce radiation dose to as low as reasonably achievable. Dictated by Cresencio Linda MD @ 07/10/2023 2:41:44 PM (Electronically Signed)
[2023-07-10] MEDS: ACETAMINOPHEN 500 MG TABLET 1000 MG PO (12:27)
[2023-07-10 12:34] LABS: C Reactive Protein* 14.3 mg/dL (0.5-1.0)
--- NOTE | 2023-07-10 12:45 | ED.NURSE ---
pt is reporting a headache
[2023-07-10 12:47] LABS: Bacteria Urine Few; RBC Urine 0-2 (0-2); Squamous Epithelial Cell Urine Few (None-Few); WBC Urine 0-2 (0-5)
[2023-07-10 13:28] LABS: Procalcitonin* 0.35 ng/mL (<0.50)
[2023-07-10] MEDS: 0.9 % SODIUM CHLORIDE 1000 ml 1,000 ML 125 ML IV (16:01)
[2023-07-10] MEDS: PIPERACILLIN/TAZOBACTAM 3.375 GM in 0.9 % SODIUM CHLORIDE Mini-bag 100 ML IVPB (16:01)
--- NOTE | 2023-07-10 18:15 | ED.NURSE ---
pt report given to EMS
--- NOTE | 2023-07-10 18:43 | ED.NURSE ---
Pt report given to [facility]
== END 2023-07-10 18:10 | disposition short-term general hospital (02) ==
PROVIDERS: Emergency Provider Family Medicine; PCP Family Medicine
DX: K63.1 Perforation of intestine (nontraumatic) (principal)
CPT/HCPCS: 36415; 71275; 74177; 80048; 80076; 81001; 83605; 83690; 84145; 85025; 86140; 87040; 87086; 87631; 94761; 96365; 99285; A9270; J2543; J7030; J7120; Q9967

== ENCOUNTER 2023-07-10 18:08 | Outpatient (CLI) | payer MEDICARE, BC, SELFPAY | END 2023-07-10 18:09 | disposition home or self-care (01) | LOC: AMB 07-11 10:01 | PROVIDERS: PCP Family Medicine; Visit Provider Emergency Medicine Emergency Medical Services | DX: K63.1 Perforation of intestine (nontraumatic) (principal) | CPT/HCPCS: A0425; A0426 ==

== ENCOUNTER 2023-07-31 08:58 | Outpatient (REF) | payer MEDICARE, BC, SELFPAY ==
[2023-07-31 09:29] LABS: Basophils Absolute Auto 0.02 K/uL (0.00-0.30); Basophils Percent Auto 0.2 % (0.0-3.0); Eosinophils Absolute Auto 0.11 K/uL (0.00-0.50); Eosinophils Percent Auto 1.2 % (0.0-7.0); Hematocrit 38.9 % (33.0-51.0); Hemoglobin* 12.4 gm/dL (12.0-16.0); Immature Granulocytes Abs Auto 0.01 K/uL (0.00-0.30); Immature Granulocytes Pct Auto 0.1 %; Lymphocytes Percent Auto 13.9 % (20-44); Mean Corpuscular HGB Conc 32 gm/dL (32-36); Mean Corpuscular Hemoglobin 28 pg (26-34); Mean Corpuscular Volume 89 fL (80-100); Monocytes Percent Auto 12.2 % (0.0-11.0); Neutrophils Percent Auto 72.4 % (42.0-72.0); Platelet Count* 522 K/uL (140-440); Red Blood Count 4.37 m/uL (4.00-5.20); White Blood Count* 9.38 K/uL (4.50-11.00)
[2023-07-31 09:30] LABS: Slide Review Reflex No
== END 2023-07-31 08:59 | disposition home or self-care (01) ==
LOC: NPINS 08:58
PROVIDERS: PCP Family Medicine
DX: K63.1 Perforation of intestine (nontraumatic) (principal)
CPT/HCPCS: 85025

== ENCOUNTER 2023-09-12 10:00 | Outpatient (RCR) | payer MEDICARE, BC, SELFPAY ==
--- NOTE | 2023-03-23 14:10 | PC.NURSE ---
Orders received for iron infusion for Ashley. RN noted that notes on the orders state that pt is having surgery on 03/28/2023. Called pt to discuss and she relays that Dr. Warner had intended that she get one dose of Injectafer before surgery and one dose after. Pt scheduled for 03/27/2023 at 0800.
--- NOTE | 2023-03-26 12:43 | URNOTE ---
Received request for prior authorization for Injectafer ([id number]). Pt has medicare primary. Prior authorization is not required. Services are based on medical necessity and follow medicare guidelines.
[2023-03-27 08:20] VITALS: BP 115/67; PULSE 91; RESP 16; TEMP 37; O2SAT 97
[2023-03-27] MEDS: FERRIC CARBOXYMALTOSE 750 MG in 0.9 % SODIUM CHLORIDE 250 ml 250 ML 1060 MG IVPB (08:42)
[2023-03-27] MEDS: 0.9 % SODIUM CHLORIDE 250 ml IV (08:57)
[2023-03-27] MEDS: SODIUM CHLORIDE 0.9 % (FLUSH) 10 ML SYRINGE IVF (08:57)
--- NOTE | 2023-03-27 08:58 | ONC.NURNOTE ---
Patient scheduled for a major surgery at [facility] tomorrow 03/28. Patient stated that her physician will schedule a second dose of iron once she is discharged from the hospital.
[2023-03-27 09:40] VITALS: BP 93/57; PULSE 97; RESP 16; TEMP 37.4; O2SAT 95
--- NOTE | 2023-06-07 15:04 | URNOTE ---
Received request for prior authorization for Doxorubicin Liposomal (Doxil) ([id number]). Pt has medicare primary. Prior authorization is not required. Services are based on medical necessity and follow medicare guidelines.
[2023-06-18 10:07] LABS: Basophils Percent Auto 0.2 % (0.0-3.0); Eosinophils Percent Auto 1.1 % (0.0-7.0); Hematocrit 38.9 % (33.0-51.0); Hemoglobin* 12.2 gm/dL (12.0-16.0); Immature Granulocytes Pct Auto 0.7 %; Lymphocytes Percent Auto 38.7 % (20-44); Mean Corpuscular HGB Conc 31 gm/dL (32-36); Mean Corpuscular Hemoglobin 28 pg (26-34); Mean Corpuscular Volume 90 fL (80-100); Monocytes Percent Auto 14.5 % (0.0-11.0); Neutrophils Percent Auto 44.8 % (42.0-72.0); Platelet Count* 668 K/uL (140-440); RDW Coefficient of Variation % 18.3 % (11.5-15.5); Red Blood Count 4.31 m/uL (4.00-5.20); White Blood Count* 11.62 K/uL (4.50-11.00)
[2023-06-18 10:09] LABS: Slide Review Reflex No
[2023-06-18 10:23] LABS: Albumin* 3.8 g/dL (3.3-5.0); Chloride* 98 mmol/L (96-114); Potassium* 3.9 mmol/L (3.6-5.1); Sodium* 139 mmol/L (135-149)
[2023-06-18 10:25] LABS: Creatinine* 0.5 mg/dL (0.5-1.5); Estimated Glomerular Filt Rate 101 ml/min
[2023-06-18 10:26] LABS: Alanine Aminotransferase* 21 U/L (4-35); Alkaline Phosphatase* 97 U/L (40-150); Anion Gap 14 mEq/L (7-15); Aspartate Amino Transferase* 51 U/L (12-35); Bilirubin Total* 0.4 mg/dL (0.1-1.5); Blood Urea Nitrogen* 12 mg/dL (7-30); Carbon Dioxide* 27 mmol/L (20-32); Glucose* 143 mg/dL (60-115); Total Protein* 7.6 g/dL (6.0-8.3)
[2023-06-18 10:27] LABS: Calcium* 9.4 mg/dL (8.4-10.6)
[2023-06-18 11:20] VITALS: BP 123/75; PULSE 86; RESP 16; TEMP 36.7; O2SAT 100
[2023-06-18] MEDS: PALONOSETRON 0.25 MG/5 ML inj IVP (11:43)
[2023-06-18] MEDS: diphenhydrAMINE 50 MG in 0.9 % SODIUM CHLORIDE 100 ml 100 ML 404 MG IVPB (11:43)
[2023-06-18] MEDS: dexAMETHasone 20 MG in 0.9 % SODIUM CHLORIDE 100 ml 100 ML 420 MG IVPB (12:03)
[2023-06-18 12:46] VITALS: BP 119/64; PULSE 78; RESP 18; TEMP 37.4; O2SAT 92
--- NOTE | 2023-06-18 14:29 | URNOTE ---
REceived request for prior auth for Aloxi ([id number]). Pt has medicare/ [place]. Prior authorization is not require. Services are based on medical necessity and follow medicare guidelines.
--- NOTE | 2023-06-18 14:48 | ONC.NURNOTE ---
Pt here for C2 Doxil today. Pt had C1 at [facility] and reports she had flushing and instant throat tightness at the beginning of Doxil infusion. For C2, increased Dex from 10mg IV to 20mg IV, Benadryl 50mg IV and ran over 2 hrs instead of 1hr. Pt reported facial flushing 5 min into infusion; VSS. Flushing reolved in 5 min without intervention. Tolerated rest of infusion without issue.
--- NOTE | 2023-06-19 10:10 | PC.NURSE ---
Called pt today to check in after her 2nd Doxil infusion (1st with [facility]). Ashley states she is doing great and that she feels like the energizer bunny. She didn't sleep well last night due to steroids and noted increased hunger. She is taking advantage of her energy today and knows she will likely crash tomorrow. Encouraged pt to call with any concerns or needs any time this week. She verbalized understanding. Support offered.
--- NOTE | 2023-06-20 11:52 | ONC.NURNOTE ---
teaching on Doxil reviewed with patient on 06/18/23 for C#2 received 1st cycle at the [facility] reviewed possible side effects, after hours management, going to ER if fever over 100.4, taking antiemetics and calling if nausea or vomiting after treatment reviewed content of new patient education binder, self care at home, fatigue management patient reports nausea and vomiting after last treatment and that the prochlorperazine was not helpful additional premeds were ordered by Dr Holguin and reviewed with Ashley questions addressed consents and ASHLEY reviewed and signed
--- NOTE | 2023-06-20 11:55 | ONC.NURNOTE ---
PSDS =1 listed worry no SS consult indicated patient made aware of the services
--- NOTE | 2023-06-22 16:04 | ONC.NURNOTE ---
Patient received 2nd cycle of Doxil on SundayJune 18 and states she hasn't been able to have BM since. States Sunday and she took 2 colace-1 Miralax capsule-and 1 senna. Sunday and she also took 2 Dulcolax tablets and 3 today. She also has had 1/3 bottle of magnesium Citrate. Feels uncomfortable since she feels bloated but does state she has had 2 episodes of passing gas today and states minimum nausea. She has stopped taking Zofran and has been walking around. Suggested a suppository and that she may need enema but not to keep doing oral if not passing gas-increased nausea or pain. Can increase Miralax to twice a day as well. She stated this happened before and she didn't go for 10 days and she was so uncomfortable but finally went Reviewed signs of obstruction and need to go to ED if unable to go and any symptoms of obstruction
--- NOTE | 2023-08-07 14:19 | URNOTE ---
Received request for prior authorization for Gemcitabine (J9201), Taxotere (J9171), Fulphila ([id number]). Pt has Medicare/ [place]. Prior authorization is not required. Services are based on medical necessity and follow Medicare guidelines.
[2023-08-08 09:14] VITALS: BP 129/71; PULSE 93; RESP 16; TEMP 36.7; O2SAT 100
[2023-08-08] MEDS: 0.9 % SODIUM CHLORIDE 1000 ml 1,000 ML IV (09:37)
[2023-08-08] MEDS: SODIUM CHLORIDE 0.9 % (FLUSH) 10 ML SYRINGE IVF (11:11)
[2023-08-10 09:45] VITALS: BP 139/78; PULSE 94; RESP 16; TEMP 36.3; O2SAT 97
[2023-08-10] MEDS: SODIUM CHLORIDE 0.9 % (FLUSH) 10 ML SYRINGE IVF (10:06)
[2023-08-10] MEDS: 0.9 % SODIUM CHLORIDE 1000 ml 1,000 ML IV (10:20)
[2023-08-15 13:10] LABS: Chloride* 99 mmol/L (96-114)
[2023-08-15 13:11] LABS: Albumin* 3.5 g/dL (3.3-5.0); Potassium* 3.5 mmol/L (3.6-5.1); Sodium* 136 mmol/L (135-149)
[2023-08-15 13:13] LABS: Anion Gap 8 mEq/L (7-15); Bilirubin Total* 0.8 mg/dL (0.1-1.5); Carbon Dioxide* 29 mmol/L (20-32); Creatinine* 0.6 mg/dL (0.5-1.5); Estimated Glomerular Filt Rate 97 ml/min; Total Protein* 6.8 g/dL (6.0-8.3)
[2023-08-15 13:14] LABS: Alanine Aminotransferase* 23 U/L (4-35); Alkaline Phosphatase* 106 U/L (40-150); Aspartate Amino Transferase* 27 U/L (12-35); Blood Urea Nitrogen* 16 mg/dL (7-30); Glucose* 134 mg/dL (60-115)
[2023-08-15 13:28] LABS: Basophils Percent Auto 0.1 % (0.0-3.0); Hematocrit 35.8 % (33.0-51.0); Hemoglobin* 11.6 gm/dL (12.0-16.0); Immature Granulocytes Pct Auto 0.3 %; Lymphocytes Percent Auto 5.8 % (20-44); Mean Corpuscular HGB Conc 32 gm/dL (32-36); Mean Corpuscular Hemoglobin 29 pg (26-34); Mean Corpuscular Volume 88 fL (80-100); Monocytes Percent Auto 4.5 % (0.0-11.0); Neutrophils Percent Auto 89.3 % (42.0-72.0); Platelet Count* 491 K/uL (140-440); RDW Coefficient of Variation % 17.2 % (11.5-15.5); Red Blood Count 4.07 m/uL (4.00-5.20)
[2023-08-15 13:54] LABS: Slide Review Reflex Yes; White Blood Count* 30.36 K/uL (4.50-11.00)
[2023-08-15 13:55] LABS: Slide Review Acceptable Review (Acceptable)
--- NOTE | 2023-08-15 16:27 | ONC.NURNOTE ---
Pt called this morning reporting she was feeling a little off and requested to have her labs checked, as she is going out of town tomorrow for a long weekend. Reviewed with Yahaira Florence APRN; brenna patient's labs for next week today. Pt left immediately following lab draw for a chiropractor appt; nsg watched for labs. WBC critical at 30.36; reviewed with Yahaira Florence APRN. Pt follows with a surgical team at [facility] regarding a recent hospitalization for a perforated bowel; recommended be see by a provider today and notify her [facility] team. She is agreeable to this plan.
[2023-08-21 14:14] LABS: Basophils Percent Auto 0.1 % (0.0-3.0); Eosinophils Percent Auto 1.5 % (0.0-7.0); Hematocrit 37.7 % (33.0-51.0); Hemoglobin* 12.3 gm/dL (12.0-16.0); Immature Granulocytes Pct Auto 0.7 %; Lymphocytes Percent Auto 21.6 % (20-44); Mean Corpuscular HGB Conc 33 gm/dL (32-36); Mean Corpuscular Hemoglobin 29 pg (26-34); Mean Corpuscular Volume 88 fL (80-100); Monocytes Percent Auto 10.1 % (0.0-11.0); Platelet Count* 484 K/uL (140-440); RDW Coefficient of Variation % 17.8 % (11.5-15.5); Red Blood Count 4.29 m/uL (4.00-5.20); White Blood Count* 13.41 K/uL (4.50-11.00)
[2023-08-21 14:15] LABS: Slide Review Reflex No
--- NOTE | 2023-09-05 07:20 | URNOTE ---
Received request for prior authorization for Pembrolizumab (J9271). Pt has Medicare/ [place]. Prior authorization is not required. Services are based on medical necessity and follow Medicare guidelines.
--- NOTE | 2023-09-07 07:32 | URNOTE ---
Request received for authorization for?Pembrolizumab (J9271). Prior authorization is not required as services are based on medical necessity and follow Medicare guidelines. Confirmed prior authorization not required with Rep Susan Cummings (Ref# [id number]) Authorization request completed on [employer] with [employer] plan Pembrolizumab (J9271) is approved Ref#[id number], date range 09-05-2023 to 03-02-2024.
[2023-09-12 09:27] LABS: Basophils Percent Auto 0.2 % (0.0-3.0); Eosinophils Percent Auto 1.5 % (0.0-7.0); Hematocrit 37.7 % (33.0-51.0); Hemoglobin* 12.3 gm/dL (12.0-16.0); Immature Granulocytes Pct Auto 0.5 %; Mean Corpuscular HGB Conc 33 gm/dL (32-36); Mean Corpuscular Hemoglobin 28 pg (26-34); Mean Corpuscular Volume 87 fL (80-100); Monocytes Percent Auto 10.2 % (0.0-11.0); Neutrophils Percent Auto 70.6 % (42.0-72.0); Platelet Count* 610 K/uL (140-440); RDW Coefficient of Variation % 16.1 % (11.5-15.5); Red Blood Count 4.33 m/uL (4.00-5.20); White Blood Count* 13.26 K/uL (4.50-11.00)
[2023-09-12 09:36] LABS: Albumin* 3.8 g/dL (3.3-5.0); Chloride* 101 mmol/L (96-114)
[2023-09-12 09:37] LABS: Potassium* 4.3 mmol/L (3.6-5.1); Sodium* 137 mmol/L (135-149)
[2023-09-12 09:39] LABS: Alkaline Phosphatase* 189 U/L (40-150); Anion Gap 5 mEq/L (7-15); Aspartate Amino Transferase* 52 U/L (12-35); Bilirubin Total* 0.7 mg/dL (0.1-1.5); Blood Urea Nitrogen* 16 mg/dL (7-30); Carbon Dioxide* 31 mmol/L (20-32); Creatinine* 0.7 mg/dL (0.5-1.5); Estimated Glomerular Filt Rate 93 ml/min; Total Protein* 7.7 g/dL (6.0-8.3)
[2023-09-12 09:40] LABS: Alanine Aminotransferase* 39 U/L (4-35); Calcium* 9.5 mg/dL (8.4-10.6); Glucose* 159 mg/dL (60-115)
[2023-09-12 09:41] LABS: Slide Review Reflex No
[2023-09-12 10:13] LABS: Thyroid Stimulating Hormone* 0.837 uIU/mL (0.270-4.20)
[2023-09-12] MEDS: PEMBROLIZUMAB 200 MG, TUBING PRIMARY 1 EACH, In-line 0.2 micron filter set 1 EACH in 0.... 216 MG IVPB (11:00)
[2023-09-12] MEDS: 0.9 % SODIUM CHLORIDE 250 ml IV (12:47)
[2023-09-12] MEDS: SODIUM CHLORIDE 0.9 % (FLUSH) 10 ML SYRINGE IVF (12:47)
== END 2023-09-23 23:59 | disposition home or self-care (01) ==
LOC: CCIC 10:00
PROVIDERS: Clinical Nurse Specialist; PCP Family Medicine; Referring Provider Family Medicine; Visit Provider Internal Medicine Hematology & Oncology
DX: C16.9 Malignant neoplasm of stomach, unspecified (principal); Z51.12 Encounter for antineoplastic immunotherapy; C78.7 Secondary malignant neoplasm of liver and intrahepatic bile duct; Z87.891 Personal history of nicotine dependence
CPT/HCPCS: 36415; 80053; 84443; 85025; 96360; 96365; 96376; 96413; 96415; 99202; 99205; 99211; 99212; 99214; 99215; G0463; J1100; J1200; J1439; J2469; J7030; J7050; J9271; Q2050

== ENCOUNTER 2023-10-12 10:37 | Outpatient (CLI) | payer MEDICARE, BC, SELFPAY ==
--- NOTE | 2023-10-12 11:00 | CT_ITS ---
Patient: RYANNE SANDHU Facility:?[facility] Patient ID:?[id number] Site Patient ID:?[id number]. Site :?[id number] Study:?CT-Chest/Abd/Pelvis W/IV AND WATER PREP-10/12/2023 12:05:02 PM Ordering Physician:QUOC CALDWELL Final Report: Indication: Undifferentiated pleomorphic sarcoma follow up Technique: Postcontrast CT chest, abdomen and pelvis. 82 cc Isovue 370 intravenous contrast. Please note that all CT scans at this facility use dose modulation, iterative reconstruction, and/or weight-based dosing when appropriate to reduce radiation dose to as low as reasonably achievable. Comparison: 07/10/2023 Findings: In the chest, a pericardial effusion is present measuring up to 1.4 cm. Small right pleural effusion is noted. Increased conspicuity of a subcentimeter GE junction lymph node. Also increased conspicuity of a nodular density anterior to the liver measuring 1.8 cm. Visualized thyroid is normal. No enlarged lymph nodes within the mediastinum. Atherosclerotic changes. No enlarged hilar lymph nodes. Axillary lymph nodes appear normal. Atelectasis is present within the right lower lobe. No pneumothorax or pulmonary edema. New pulmonary nodule within the superior segment left lower lobe measuring 6 millimeters. Small pleural-based nodules left lower lobe. There is no vertebral body compression fracture. In the abdomen, extensive metastatic involvement of the liver is noted. Conglomerate heterogeneous mass within the inferior liver measures up to 20 centimeters in length, representing merging of several large metastatic lesions. Numerous other metastatic lesions are present elsewhere throughout the liver, increased in size and number. Interval development of heterogeneous soft tissue masses throughout the mesenteric fat measuring up to 6.5 cm. The portal vein remains patent. No pancreatic lesion. Adrenal glands appears similar. No hydronephrosis. Simple cyst left kidney. Absent spleen. Gallbladder appears normal. Liver is markedly enlarged. Atherosclerotic changes. No aneurysm. Mildly prominent upper abdominal retroperitoneal lymph nodes. In the pelvis, bilateral hip replacement hardware noted creating beam hardening artifact. A small amount of pelvic free fluid is present. No free air or abscess. There is a heterogeneous solid mass within the lower left pelvis anteriorly measuring 4.9 cm. No vertebral body compression fracture. Facet degeneration. Impression: Severe hepatomegaly with marked progression of metastatic disease throughout the liver including a conglomerate metastatic lesion measuring up to 20 cm within the inferior liver. Interval development of multiple abdominal and upper pelvic soft tissue masses throughout the mesenteric fat measuring up to 6.5 cm. Interval development of pericardial effusion and small right pleural effusion along with a 6 millimeter left lower lobe pulmonary nodule. Please note that all CT scans at this facility use dose modulation, iterative reconstruction, and/or weight-based dosing when appropriate to reduce radiation dose to as low as reasonably achievable. Dictated by Major Ambriz MD @ 10/12/2023 1:39:23 PM Signed by:?Major Ambriz MD @10/12/2023 1:39:23 PM (Electronic Signature)
== END 2023-10-12 10:38 | disposition home or self-care (01) ==
PROVIDERS: PCP Family Medicine; Visit Provider Nurse Practitioner Family
DX: C49.9 Malignant neoplasm of connective and soft tissue, unspecified (principal); R16.0 Hepatomegaly, not elsewhere classified; I31.39 Other pericardial effusion (noninflammatory); J90 Pleural effusion, not elsewhere classified; R91.8 Other nonspecific abnormal finding of lung field
CPT/HCPCS: 71260; 74177; Q9967

== ENCOUNTER 2023-10-22 09:45 | Outpatient (RCR) | payer MEDICARE, BC, SELFPAY ==
[2023-10-02 10:26] LABS: Basophils Percent Auto 0.2 % (0.0-3.0); Eosinophils Percent Auto 1.2 % (0.0-7.0); Hematocrit 33.8 % (33.0-51.0); Immature Granulocytes Pct Auto 0.4 %; Lymphocytes Percent Auto 16.3 % (20-44); Mean Corpuscular HGB Conc 33 gm/dL (32-36); Mean Corpuscular Hemoglobin 28 pg (26-34); Mean Corpuscular Volume 86 fL (80-100); Monocytes Percent Auto 12.3 % (0.0-11.0); Neutrophils Percent Auto 69.6 % (42.0-72.0); Platelet Count* 433 K/uL (140-440); RDW Coefficient of Variation % 15.7 % (11.5-15.5); Red Blood Count 3.93 m/uL (4.00-5.20); White Blood Count* 11.75 K/uL (4.50-11.00)
[2023-10-02 10:27] LABS: Slide Review Reflex No
[2023-10-02 10:37] LABS: Albumin* 3.3 g/dL (3.3-5.0); Chloride* 99 mmol/L (96-114)
[2023-10-02 10:38] LABS: Potassium* 3.7 mmol/L (3.6-5.1); Sodium* 134 mmol/L (135-149)
[2023-10-02 10:40] LABS: Alanine Aminotransferase* 64 U/L (4-35); Alkaline Phosphatase* 191 U/L (40-150); Anion Gap 7 mEq/L (7-15); Aspartate Amino Transferase* 70 U/L (12-35); Bilirubin Total* 0.9 mg/dL (0.1-1.5); Blood Urea Nitrogen* 13 mg/dL (7-30); Carbon Dioxide* 28 mmol/L (20-32); Creatinine* 0.6 mg/dL (0.5-1.5); Estimated Glomerular Filt Rate 97 ml/min; Glucose* 128 mg/dL (60-115)
[2023-10-02 10:41] LABS: Calcium* 8.7 mg/dL (8.4-10.6)
[2023-10-02 11:30] LABS: Thyroid Stimulating Hormone* 0.898 uIU/mL (0.270-4.20)
[2023-10-03 10:13] VITALS: BP 115/69; PULSE 93; RESP 16; TEMP 36.4; O2SAT 97
[2023-10-03] MEDS: PEMBROLIZUMAB 200 MG, TUBING PRIMARY 1 EACH, In-line 0.2 micron filter set 1 EACH in 0.... 216 MG IVPB (10:50)
--- NOTE | 2023-10-18 12:58 | ONC.NURNOTE ---
Patient noted to be on schedule on Sunday, but discussion noted about change in treatment. Glove Printer contacted patient and she notes that she was seen by her [facility] doctors last night and today and was told that due to progression she is being changed to every other week gemzar. Keytruda will be discontinued. She also notes that she was supposed to have labs completed tomorrow. No lab orders or note from [facility] have been obtained. Glove Printer contacted the childcare center administrator at [phone] to send last note with dictation of what patient will be changing treatment to, along with lab orders. Patient appointment moved up to Sunday in order to start chemotherapy sooner per preference.
--- NOTE | 2023-10-19 13:24 | URNOTE ---
Request received for authorization for?Diogenes (J9201), and Nel ([id number]). Prior authorization is not required as services are based on medical necessity and follow Medicare guidelines.
[2023-10-22 10:30] LABS: Basophils Percent Auto 0.1 % (0.0-3.0); Eosinophils Percent Auto 0.8 % (0.0-7.0); Hematocrit 31.5 % (33.0-51.0); Hemoglobin* 10.5 gm/dL (12.0-16.0); Immature Granulocytes Pct Auto 0.8 %; Lymphocytes Percent Auto 10.5 % (20-44); Mean Corpuscular HGB Conc 33 gm/dL (32-36); Mean Corpuscular Hemoglobin 28 pg (26-34); Mean Corpuscular Volume 84 fL (80-100); Monocytes Percent Auto 7.3 % (0.0-11.0); Neutrophils Percent Auto 80.5 % (42.0-72.0); Platelet Count* 345 K/uL (140-440); RDW Coefficient of Variation % 17.7 % (11.5-15.5); Red Blood Count 3.76 m/uL (4.00-5.20); White Blood Count* 13.49 K/uL (4.50-11.00)
[2023-10-22 10:39] LABS: Slide Review Reflex No
[2023-10-22 10:45] LABS: Chloride* 101 mmol/L (96-114); Sodium* 131 mmol/L (135-149)
[2023-10-22 10:46] LABS: Potassium* 4.4 mmol/L (3.6-5.1)
[2023-10-22 10:48] LABS: Alkaline Phosphatase* 204 U/L (40-150); Anion Gap 7 mEq/L (7-15); Aspartate Amino Transferase* 90 U/L (12-35); Bilirubin Total* 0.9 mg/dL (0.1-1.5); Blood Urea Nitrogen* 13 mg/dL (7-30); Carbon Dioxide* 23 mmol/L (20-32); Creatinine* 0.7 mg/dL (0.5-1.5); Estimated Glomerular Filt Rate 93 ml/min; Total Protein* 6.8 g/dL (6.0-8.3)
[2023-10-22 10:49] LABS: Alanine Aminotransferase* 62 U/L (4-35); Calcium* 8.8 mg/dL (8.4-10.6); Glucose* 91 mg/dL (60-115)
[2023-10-22 11:07] LABS: Free T4 Free Thyroxine* 1.21 ng/dL (0.70-1.85)
--- NOTE | 2023-10-23 11:10 | ONC.NURNOTE ---
Preconstruction Manager faxed blood results to [place].
--- NOTE | 2023-10-24 13:39 | ONC.NURNOTE ---
Mineral Technologist spent much of yesterday working to get fentanyl approved. Patient called today asking about increasing to 50mcg for coverage and possibility of paracentesis. Note was back for provider, and clinic nurse notes patient is going to hospice. Mineral Technologist contacted patient and she notes that they are in her home now and they already noted that they will work on the pain medications for her.
== END 2023-11-14 23:59 | disposition home or self-care (01) ==
LOC: CCIC 09:45
PROVIDERS: Clinical Nurse Specialist; PCP Family Medicine; Referring Provider Family Medicine; Visit Provider Internal Medicine Hematology & Oncology
DX: C49.4 Malignant neoplasm of connective and soft tissue of abdomen (principal); C78.7 Secondary malignant neoplasm of liver and intrahepatic bile duct; R23.2 Flushing; Z72.0 Tobacco use; E61.1 Iron deficiency
CPT/HCPCS: 36415; 80053; 84439; 84443; 85025; 96413; 99214; 99215; G0463; J9271